=== PATIENT | male | born 1970 | race Caucasian/White ===

== ENCOUNTER 2016-10-30 03:04 | Emergency (ER) | payer SELFPAY ==
[2016-10-30] MEDS ORDERED: ONDANSETRON HCL IV 4 MG/2 ML VIAL IVP ONE (03:10)
[2016-10-30] MEDS ORDERED: 0.9 % SODIUM CHLORIDE 1000ML 1,000 ML IV SCH (03:15)
[2016-10-30 03:29] LABS: INFLUENZA A NEGATIVE (NEGATIVE); INFLUENZA B POSITIVE (NEGATIVE)
[2016-10-30 03:41] LABS: BASO % 0.2 % (0-6); EOS % 0.1 % (0-6); GRAN % 78.6 % (47-80); HEMATOCRIT 43.4 % (42.0-52.0); HEMOGLOBIN 14.9 gm/dl (14.0-18.0); LYMPH % 7.5 % (16-45); MEAN CELL VOLUME 89.1 fl (81-97); MEAN CORPUSCULAR HEMOGLOBIN 30.6 pg (27-33); MEAN CORPUSCULAR HGB CONC 34.3 g/dl (32-36); MEAN PLATELET VOLUME 10.7 fl (7.4-10.4); MONO % 13.6 % (0-9); PLATELET COUNT 277 K/uL (130-400); RED BLOOD COUNT 4.87 M/uL (4.40-5.70); RED CELL DISTRIBUTION WIDTH 12.7 % (11.5-14.5); WHITE BLOOD COUNT W/O DIFF 10.4 K/uL (4.2-12.2)
[2016-10-30] MEDS ORDERED: OSTELTAMIVIR 75 MG CAP PO ONE (03:50)
[2016-10-30 03:52] LABS: ALB/GLOB RATIO 1.7 (1.1-1.8); ALKALINE PHOSPHATASE 77 U/L (38-126); ALT/SGPT 43 U/L (21-72); ANION GAP 15.3 (7-16); AST/SGOT 25 U/L (17-59); BLOOD UREA NITROGEN 17 mg/dL (9-20); CARBON DIOXIDE 21.7 mmol/L (22-30); CREATININE 0.8 mg/dL (0.66-1.25); EST GLOMERULAR FILTRATION RATE > 60 ml/min; GLUCOSE,RANDOM 142 mg/dL (70-110); LIPASE 206 U/L (23-300)
--- NOTE | 2016-10-30 03:52 | Emergency Department Record ---
History of Present Illness - General Chief Complaint: Abdominal Pain Stated Complaint: VOMITING Time Seen by Provider: 10/30/16 03:43 Source: Patient Mode of Arrival: Ambulatory Limitations: No limitations - History of Present Illness Initial Comments: 45 yo male presents to ED with a 2-day history of fever, cough, nausea, and vomiting symptoms. Patient denies abdominal pain, urinary symptoms, or change in stools. Patient denies health problems at his baseline. MD Complaint: Other (vomiting) Onset/Timin -: Hour(s) Radiation: None Migration to: No migration Severity: Moderate Quality: Cramping Consistency: Intermittent Improves With: Movement, Vomiting Worsens With: Nothing Context: Sick contacts Associated Symptoms: Anorexia - Related Data Previous Rx's Medication Instructions Recorded Ondansetron [Zofran Odt] 4 mg PO Q6H PRN #20 tab.rapdis 10/30/16 Oseltamivir Phosphate [Tamiflu] 75 mg PO BID #10 capsule 10/30/16 Allergies Allergy/AdvReac Type Severity Reaction Status Date / Time Cephalosporins Allergy RASH Verified 10/30/16 03:08 Travel Screening - Travel/Exposure Within Last 30 Days Have you traveled within the last 30 days?: No - Travel/Exposure Within Last Year Have you traveled outside the [place] in the last year?: No - Additonal Travel Details Have you been exposed to anyone with a communicable illness?: Yes Exposure Details:: Went to [place] Saturday - Travel Symptoms Symptom Screening: Joint & Muscle Aches, Fatigue, Vomiting, Stomach Pain Review of Systems Constitutional: Reports: Fever, Malaise. Denies: Chills, Night sweats Eyes: Denies: Eye discharge, Eye pain ENT: Denies: Congestion, Ear pain, Epistaxis Respiratory: Denies: Cough, Dyspnea Cardiovascular: Denies: Chest pain, Dyspnea on exertion Endocrine: Denies: Fatigue, Heat or cold intolerance Gastrointestinal: Reports: Nausea, Vomiting. Denies: Abdominal pain Genitourinary: Denies: Incontinence, Retention Musculoskeletal: Denies: Arthralgia, Back pain, Gout, Joint swelling Skin: Denies: Bruising, Change in color Neurological: Denies: Abnormal gait, Confusion, Headache, Seizure Psychiatric: Denies: Anxiety Hematological/Lymphatic: Denies: Anemia, Blood Clots Past Medical History - SOCIAL HISTORY Smoking Status: Never smoker Alcohol Use: None Drug Use: None - RESPIRATORY Hx Respiratory Disorders: No - CARDIOVASCULAR Hx Cardio Disorders: No - NEURO Hx Neuro Disorders: No - GI Hx GI Disorders: No - Hx Genitourinary Disorders: No - ENDOCRINE Hx Endocrine Disorders: No - MUSCULOSKELETAL Hx Musculoskeletal Disorders: No - PSYCH Hx Psych Problems: Yes Hx Anxiety: Yes Hx Depression: Yes - HEMATOLOGY/ONCOLOGY Hx Hematology/Oncology Disorders: No Family Medical History Any Significant Family History?: Yes Hx Alcohol Use: Father Hx Heart Disease: Father Physical Exam - General General Appearance: Alert, Oriented x3, Cooperative, Mild distress Limitations: No limitations - Head Head exam: Atraumatic, Normocephalic, Normal inspection Head exam detail: negative: Abrasion, Contusion, Lam's sign, General tenderness, Hematoma, Laceration - Eye Eye exam: Normal appearance. negative: Conjunctival injection, Periorbital swelling, Periorbital tenderness, Scleral icterus - ENT Ear exam: negative: Auricular hematoma, Auricular trauma Nasal Exam: negative: Active bleeding, Discharge, Dried blood, Foreign body Mouth exam: negative: Drooling, Laceration, Muffled voice, Tongue elevation - Neck Neck exam: Normal inspection. negative: Meningismus, Tenderness - Respiratory Respiratory exam: Normal lung sounds bilaterally. negative: Rales, Respiratory distress, Rhonchi, Stridor - Cardiovascular Cardiovascular Exam: Regular rate, Normal rhythm, Normal heart sounds - GI/Abdominal GI/Abdominal exam: Soft, Other (Abdominal examination is 100% benign on exam). negative: Rebound, Rigid, Tenderness - Rectal Rectal exam: Deferred - exam: Deferred - Extremities Extremities exam: Normal inspection. negative: Calf tenderness, Pedal edema, Tenderness - Back Back exam: Denies: CVA tenderness (R), CVA tenderness (L) - Neurological Neurological exam: Alert, Normal gait, Oriented X3 - Psychiatric Psychiatric exam: Normal affect, Normal mood - Skin Skin exam: Normal color. negative: Abrasion Type of lesion: negative: abrasion Course Vital Signs 10/30/16 03:09 Temperature 98.2 F Pulse Rate [ 85 Pulse Ox Probe] Respiratory 24 Rate Blood Pressure 151/100 [Left Arm] Pulse Ox 97 - Reevaluation(s) Reevaluation #1: 10/30/16 04:02 Labs reviewed, Influenza B is positive, labs are otherwise grossly unremarkable for an acute process. Reevaluation #2: 10/30/16 04:18 Patient reassessed, reports that his nausea symptoms are greatly improved. Patient's repeat abdominal examination again demonstrates no pain on examination. Patient appears stable for discharge. Medical Decision Making - Lab Data Result diagrams: 10/30/16 03:30 10/30/16 03:30 Lab Results 10/30/16 10/30/16 Range/Units 03:25 03:30 WBC 10.4 (4.2-12.2) K/uL RBC 4.87 (4.40-5.70) M/uL Hgb 14.9 (14.0-18.0) gm/dl Hct 43.4 (42.0-52.0) % MCV 89.1 (81-97) fl MCH 30.6 (27-33) pg MCHC 34.3 (32-36) g/dl RDW 12.7 (11.5-14.5) % Plt Count 277 (130-400) K/uL MPV 10.7 H (7.4-10.4) fl Gran % 78.6 (47-80) % Lymphocytes % 7.5 L (16-45) % Monocytes % 13.6 H (0-9) % Eosinophils % 0.1 (0-6) % Basophils % 0.2 (0-6) % Influenza Type A Ag Negative (NEGATIVE) Influenza Type B Ag Positive H (NEGATIVE) Disposition Disposition: Discharge Clinical Impression: Influenza B Nausea & vomiting Qualifiers: Vomiting type: unspecified Vomiting Intractability: non-intractable Qualified Code(s): R11.2 - Nausea with vomiting, unspecified Disposition: Home, Self-Care Condition: (2) Stable Instructions: Influenza (ED) Additional Instructions: Return to ED if your symptoms worsen or if you have any concerns. Tamiflu and Zofran as directed. Follow-up with your family doctor in 3-5 days as directed. Prescriptions: Oseltamivir Phosphate [Tamiflu] 75 mg PO BID #10 capsule Ondansetron [Zofran Odt] 4 mg PO Q6H PRN #20 tab.rapdis PRN Reason: Nausea/Vomiting Forms: Patient Portal Access Time of Disposition: 04:21
[2016-10-30] MEDS ORDERED: ONDANSETRON 4 MG ODT TABLET SL ONE (04:21)
== END 2016-10-30 04:35 | disposition home or self-care (01) ==
LOC: ER 03:04
DX: J10.2 Influenza due to other identified influenza virus with gastrointestinal manifestations (principal)
CPT/HCPCS: 83690; 85025; 80053; 87400; J2405; 96361; 96374; 99284; J7030